=== PATIENT | female | born 1945 | race Caucasian/White ===

== ENCOUNTER 2016-06-11 22:32 | Observation (INO) | payer MEDICAID, MEDICARE, OTHER ==
[~2016-06-11] VITALS: Ht 167.6 cm; Wt 78.0 kg
[2016-06-11 20:00] VITALS: PULSE 102
[2016-06-11 22:34] VITALS: BP 132/78; PULSE 100; RESP 24; TEMP 97.4; O2SAT 94
--- NOTE | 2016-06-11 23:16 | PD ---
HPI Chief Complaint: Respiratory Symptoms Time Seen by Provider: 22:51 Travel History International Travel<30 days: No Contact w/Intl Traveler<30days: No Traveled to known affect area: No History of Present Illness HPI The patient is a 70 year old female who presents to the [facility] emergency department with a history of shortness of breath she reports began yesterday morning. She reports it has been associated with a dry/wheezing type of cough. She denies having any increased lower extremity edema. She reports that she does have chronic edema related to cirrhosis of her liver. She reports that she is on 2 diuretics related to this. The patient is visiting from [place]. She reports that she became concerned about the shortness of breath being related to a possible pleural effusion as last year she had a pleural effusion on the right side drained twice. The patient denies having any chest pain or chest pressure. She reports that she does have a history of myocardial infarction approximately 10 years ago. She reports that approximately 10 years ago she also had 2 stents placed. She denies any history of COPD or congestive heart failure. The patient reports having nausea without any vomiting. The patient denies any recent fevers, neck pain, abdominal pain, diarrhea, urinary symptoms, or neurologic symptoms. The patient reports that she last moved her bowels earlier today. [facility] Past Medical History Narrative Medical The patient's past medical history is significant for coronary artery disease status post myocardial infarction approximately 10 years ago, history of 2 prior cardiac stents being placed, hyperlipidemia, vitamin D deficiency, hypertension, fibromyalgia, cirrhosis of the liver related to hepatic steatosis , history of hypothyroid disorder, history of acid reflux, history of ascites, history of pleural effusion, history of being prediabetic. ?: Not Past Surgical History Narrative Surgical The patient's past surgical history is significant for coronary artery catheterization with stent placement 2, pleural effusion drainage 2 on the right side. Social History Alcohol Use: No Tobacco Use: No Substance Use: No Allergies-Medications (Allergen,Severity, Reaction): Coded Allergies: No Known Allergies (Unverified , 06/11/16) Reported Meds & Prescriptions Reported Meds & Active Scripts Active Reported Synthroid (Levothyroxine Sodium) 125 Mcg Tab 125 Mcg PO DAILY Lasix (Furosemide) 40 Mg Tab 40 Mg PO DAILY Lipitor (Atorvastatin Calcium) 20 Mg Tab 20 Mg PO HS Losartan (Losartan Potassium) 50 Mg Tab 50 Mg PO DAILY Zinc 100 Mg Tab 220 Mg PO DAILY Metformin (Metformin HCl) 500 Mg Tab 500 Mg PO DAILY With a meal Zoloft (Sertraline HCl) 100 Mg Tab 100 Mg PO DAILY Savella (Milnacipran) 100 Mg Tab 100 Mg PO DAILY Vitamin A 10,000 Unit Cap 10,000 Units PO DAILY Omeprazole 20 Mg Tab 20 Mg PO DAILY Review of Systems Except as stated in HPI: all other systems reviewed are Neg General / Constitutional: No: Fever Eyes: No: Visual changes HENT: No: Headaches Cardiovascular: Positive: Dyspnea on exertion, No: Chest Pain or Discomfort Respiratory: Positive: Cough, Shortness of Breath, Wheezing Gastrointestinal: Positive: Nausea, No: Vomiting, Diarrhea, Abdominal Pain, Changes in Bowel Habits, Indigestion, Loss of Appetite Genitourinary: No: Dysuria Musculoskeletal: No: Pain Skin: No Rash Neurologic: No: Weakness Psychiatric: No: Depression Endocrine: No: Polydipsia Hematologic/Lymphatic: No: Easy Bruising Physical Exam Narrative General: The patient is a well-developed well-nourished female in no acute distress. Head and Neck exam: Head is normocephalic atraumatic. Eyes: EOMI, pupils are equal round and reactive to light. Nose: Midline septum with pink mucous membranes Mouth: Dentition unremarkable. Moist mucus membranes. Posterior oropharynx is not erythematous. No tonsillar hypertrophy. Uvula midline. Airway patent. Neck: No palpable lymphadenopathy. No nuchal rigidity. No thyromegaly. Cardiovascular: Sinus tachycardia in the low 100 without murmurs, gallops, or rubs. No pulse deficit to the extremities and simultaneous auscultation and palpation of her radial artery. Lungs: Decreased breath sounds are noted in the right lung base, no wheezes, rhonchi, or crackles are audible. The patient has an occasional dry sounding cough on exam. Abdomen: Soft, without tenderness to palpation in all 4 quadrants of the abdomen. No guarding, rebound, or rigidity. Normal bowel sounds are audible. Extremities: No clubbing or cyanosis. The patient has trace pedal edema bilateral lower extremities. 2+ pulses in all 4 extremities. No calf tenderness on palpation. Back: No spinous process tenderness to palpation. No costovertebral angle tenderness to palpation. Neurologic Exam: Grossly nonfocal. Skin Exam: No rash noted. Intact skin that is warm and dry. Data Data Last Documented VS Vital Signs Date Time Temp Pulse Resp B/P Pulse Ox O2 Delivery O2 Flow Rate FiO2 06/12/16 00:01 20 06/11/16 23:59 96 21 06/11/16 23:59 Room Air 06/11/16 22:34 97.4 100 132/78 Orders Complete Blood Count With Diff (06/11/16 22:53) Comprehensive Metabolic Panel (06/11/16 22:53) B-Type Natriuretic Peptide (06/11/16 22:53) D-Dimer (06/11/16 22:53) Act Partial Throm Time (Ptt) (06/11/16 22:53) Prothrombin Time / Inr (Pt) (06/11/16 22:53) Magnesium (Mg) (06/11/16 22:53) Ckmb (Isoenzyme) Profile (06/11/16 22:53) Troponin I (06/11/16 22:53) Urinalysis - C+S If Indicated (06/11/16 22:53) Iv Access Insert/Monitor (06/11/16 22:53) Electrocardiogram (06/11/16 22:53) Ecg Monitoring (06/11/16 22:53) Oximetry (06/11/16 22:53) Oxygen Administration (06/11/16 22:53) Chest, Single Ap (06/11/16 22:53) Urine Culture (06/11/16 23:30) CKMB (06/11/16 23:30) CKMB% (06/11/16 23:30) Ct Pulmonary Angiogram (06/12/16 00:25) Admit Order (Ed Use Only) (06/12/16 00:40) Labs Laboratory Tests Test 06/11/16 23:30 Prothrombin Time 13.1 SEC Prothromb Time International 1.2 RATIO Ratio Activated Partial 26.6 SEC Thromboplast Time D-Dimer Quantitative (PE/DVT) 2.00 MG/L FEU White Blood Count 3.3 TH/MM3 Red Blood Count 4.45 MIL/MM3 Hemoglobin 10.7 GM/DL Hematocrit 32.4 % Mean Corpuscular Volume 72.8 FL Mean Corpuscular Hemoglobin 24.0 PG Mean Corpuscular Hemoglobin 33.0 % Concent Red Cell Distribution Width 19.8 % Platelet Count 69 TH/MM3 Mean Platelet Volume 8.7 FL Neutrophils (%) (Auto) 66.4 % Lymphocytes (%) (Auto) 22.4 % Monocytes (%) (Auto) 9.1 % Eosinophils (%) (Auto) 1.6 % Basophils (%) (Auto) 0.5 % Neutrophils # (Auto) 2.2 TH/MM3 Lymphocytes # (Auto) 0.7 TH/MM3 Monocytes # (Auto) 0.3 TH/MM3 Eosinophils # (Auto) 0.1 TH/MM3 Basophils # (Auto) 0.0 TH/MM3 CBC Comment AUTO DIFF Differential Comment AUTO DIFF CONFIRMED Platelet Estimate LOW Platelet Morphology Comment NORMAL Ovalocytes 1+ Urine Color YELLOW Urine Turbidity HAZY Urine pH 5.5 Urine Specific [place] 1.017 Urine Protein TRACE mg/dL Urine Glucose (UA) NEG mg/dL Urine Ketones NEG mg/dL Urine Occult Blood TRACE Urine Nitrite NEG Urine Bilirubin NEG Urine Urobilinogen LESS THAN 2.0 MG/DL Urine Leukocyte Esterase LARGE Urine RBC 2 /hpf Urine WBC 32 /hpf Urine Squamous Epithelial 11 /hpf Cells Urine Transitional Epithelial 1 /hpf Cells Urine Bacteria OCC /hpf Urine Hyaline Casts 1 /lpf Urine Mucus FEW /lpf Microscopic Urinalysis Comment CULTURE INDICATED Sodium Level 142 MEQ/L Potassium Level 3.1 MEQ/L Chloride Level 102 MEQ/L Carbon Dioxide Level 27.1 MEQ/L Anion Gap 13 MEQ/L Blood Urea Nitrogen 13 MG/DL Creatinine 1.16 MG/DL Estimat Glomerular Filtration 46 ML/MIN Rate Random Glucose 93 MG/DL Calcium Level 8.8 MG/DL Magnesium Level 1.7 MG/DL Total Bilirubin 1.4 MG/DL Aspartate Amino Transf 46 U/L (AST/SGOT) Alanine Aminotransferase 31 U/L (ALT/SGPT) Alkaline Phosphatase 101 U/L Total Creatine Kinase 429 U/L Creatine Kinase MB 2.5 NG/ML Creatine Kinase MB % 0.6 % Troponin I LESS THAN 0.02 NG/ML B-Type Natriuretic Peptide 92 PG/ML Total Protein 7.7 GM/DL Albumin 3.9 GM/DL [facility] Medical Decision Making Medical Screen Exam Complete: Yes Emergency Medical Condition: Yes Medical Record Reviewed: Yes Interpretation(s) Last Impressions CT Angiography 06/12/16 0025 Signed Impressions: Service Date/Time: Sunday, June 12, 2016 01:20 - CONCLUSION: 1. No evidence of pulmonary embolus. 2. Large right pleural effusion and right lower lung atelectasis. 3. Findings indicating cirrhosis. 4. Findings indicating portal venous hypertension with splenomegaly and prominent distal esophageal varices. Matheus Silva MD Thoracentesis Ultrasound 06/12/16 0000 Signed Impressions: Service Date/Time: Sunday, June 12, 2016 08:49 - CONCLUSION: Uncomplicated ultrasound guided thoracentesis. Peter Castillo MD Chest X-Ray 06/12/16 0000 Signed Impressions: Service Date/Time: Sunday, June 12, 2016 08:42 - CONCLUSION: No acute disease. Jhonatan Rashid MD Chest X-Ray 06/11/16 2253 Signed Impressions: Service Date/Time: Saturday, June 11, 2016 23:25 - CONCLUSION: Large area of right basilar opacity indicating either large pleural effusion or elevated hemidiaphragm. Superimposed right lower lung consolidation versus atelectasis. Matheus Silva MD Differential Diagnosis Recurrent pleural effusion related to ascites, versus related to congestive heart failure, versus related to renal failure, versus pneumonia Narrative Course During the course of the patients emergency department visit, the patients history, examination, and differential diagnosis were reviewed with the patient. The patient had IV access obtained and blood work sent for analysis. The patient was placed on a court monitor with oximetry and blood pressure monitoring. An EKG was done on arrival. The patient had an EKG done that shows a sinus rhythm with occasional supraventricular premature complexes. Marked left axis deviation is noted, nonspecific ST-T wave abnormalities are noted. T waves are inverted in V1, V2, V3, no acute ST segment elevation is noted. The patients laboratory studies were reviewed and remarkable for a d-dimer that is noted to be elevated. CTA to rule out PE has been ordered. CBC is remarkable for a white count of 3.3, hemoglobin 10.7, platelets 69 with 9.1 monocytes. This pattern is suggestive of her history of cirrhosis, CMP is remarkable for potassium 3.1, creatinine 1.16, AST 46, total bilirubin 1.4, CPK 429, troponin I less than 0.02, BNP is 92. PT 13.1, INR 1.2, PTT 26.6, d-dimer elevated at 2.0, urinalysis shows trace occult blood, 2 rbc's, 32 wbc's, occasional bacteria Radiology studies were reviewed and remarkable for a chest x-ray that shows a large area of right basilar opacity indicating either large pleural effusion or elevated hemidiaphragm. Superimposed right lower lung consolidation versus atelectasis. CTA to rule out PE was negative for pulmonary embolism, large right pleural effusion is again noted. The patient will be admitted to the hospital for evaluation and treatment of recurrent large right pleural effusion associated with shortness of breath. The patients results were discussed with the patient, including the plan of care. I explained that further testing and/ or monitoring is indicated based on the patients history, examination, and/ or laboratory findings. Therefore, I recommended admission for additional evaluation. The patient expressed understanding and was agreeable with this plan. The patient was admitted to the hospital in stable condition and [facility] Physician Communication Physician Communication The patient's case was discussed with Dr. Mccoy who did agree to admit the patient for further evaluation and treatment at this time. Diagnosis Primary Impression: Recurrent right pleural effusion Additional Impression: Shortness of breath Admitting Information Admitting Physician Requests: Observation Sangeetha Harding MD Jun 11, 2016 23:15
[2016-06-11 23:41] LABS: AUTOMATED NEUTROPHIL # 2.2 TH/MM3 (1.8-7.7); BASOPHIL % 0.5 % (0.0-2.0); EOSINOPHIL # 0.1 TH/MM3 (0-0.4); EOSINOPHIL % 1.6 % (0.0-4.0); HEMATOCRIT 32.4 % (35.0-46.0); LYMPH % 22.4 % (9.0-44.0); LYMPHOCYTE # 0.7 TH/MM3 (1.0-4.8); MEAN CELL VOLUME 72.8 FL (80.0-100.0); MONO % 9.1 % (0.0-8.0); NEUT % 66.4 % (16.0-70.0); PLATELET COUNT 69 TH/MM3 (150-450); RED BLOOD COUNT 4.45 MIL/MM3 (4.00-5.30); RED CELL DISTRIBUTION WIDTH 19.8 % (11.6-17.2); WHITE BLOOD COUNT 3.3 TH/MM3 (4.0-11.0)
[2016-06-11 23:44] LABS: BACTERIA, URINE OCC /hpf; BLOOD, URINE TRACE (NEG); GLUCOSE,URINE NEG (NEG); HYALINE CAST, URINE 1 /lpf (RARE); KETONE, URINE NEG (NEG); MUCUS URINE FEW /lpf (OCC); NITRITE,URINE NEG (NEG); PH, URINE 5.5 (5.0-8.5); SQUAMOUS EPITHELIAL CELL URINE 11 /hpf (0-5); TRANSITIONAL EPI CELLS, URINE 1 /hpf; URINE COLOR YELLOW (YELLW/STRAW)
[2016-06-11 23:45] LABS: HEMO FLAGS AUTO DIFF
[2016-06-11 23:47] LABS: COMMENT (UR) CULTURE INDICATED; CULTURE IF INDICATED CULTURE INDICATED
[2016-06-11 23:53] LABS: APTT (PATIENT) 26.6 SEC (24.3-30.1); INTERNATIONAL NORMALIZED RATIO 1.2 RATIO; PROTHROMBIN TIME - PATIENT 13.1 SEC (9.8-11.6)
--- NOTE | 2016-06-11 23:57 | RADRPT ---
EXAM DATE/TIME: 06/11/2016 23:25 [facility] COMPARISON: No previous studies available for comparison. INDICATIONS : Cough and shortness of breath. MEDICAL HISTORY : None. SURGICAL HISTORY : Right side pleural effusion drainage. ENCOUNTER: Initial ACUITY: 1 day PAIN SCORE: 0/10 LOCATION: Bilateral chest FINDINGS: Single AP view of the chest. Confluent opacity of the right lung base indicating either large pleural effusion or elevation of the right hemidiaphragm with superimposed consolidation/atelectasis. The le ft lung is clear. Mild cardiac silhouette enlargement. No evidence of pneumothorax. CONCLUSION: Large area of right basilar opacity indicating either large pleural effusion or elevated hemidiaphrag m. Superimposed right lower lung consolidation versus atelectasis. Matheus Silva MD on June 11, 2016 at 23:53 Board Certified Radiologist. This report was verified electronically.
[2016-06-11 23:59] VITALS: RESP 20; O2SAT 96
[2016-06-12] VITALS (11 sets, daily range): BP systolic 128–162; BP diastolic 71–89; PULSE 84–102; RESP 18–20; TEMP 97.8–98.5; O2SAT 93–97
[2016-06-12] MEDS ORDERED: ZOLO100T PO (00:09)
[2016-06-12] MEDS ORDERED: OMEP20TA PO (00:09)
[2016-06-12] MEDS ORDERED: [UNRECOGNIZED DRUG - CODE] PO (00:09)
[2016-06-12] MEDS ORDERED: MILN100 PO (00:09)
[2016-06-12 00:11] LABS: ALT (GPT) 31 U/L (10-53); ANION GAP 13 MEQ/L (5-15); AST (GOT) 46 U/L (15-37); BICARBONATE 27.1 MEQ/L (21.0-32.0); BLOOD UREA NITROGEN 13 MG/DL (7-18); CHLORIDE 102 MEQ/L (98-107); GLOMERULAR FILTRATION RATE 46 ML/MIN (>89); MAGNESIUM 1.7 MG/DL (1.5-2.5); POTASSIUM 3.1 MEQ/L (3.5-5.1); SODIUM (NA) 142 MEQ/L (136-145)
[2016-06-12] MEDS ORDERED: LOSA50TA PO (00:12)
[2016-06-12] MEDS ORDERED: METF500T PO (00:12)
[2016-06-12] MEDS ORDERED: FURO1TAB60 PO (00:12)
[2016-06-12] MEDS ORDERED: LEVO.125 PO (00:12)
[2016-06-12] MEDS ORDERED: LIPI20TA PO (00:12)
[2016-06-12] MEDS ORDERED: ZINC100T2 PO (00:12)
[2016-06-12 00:15] LABS: ALKALINE PHOSPHATASE 101 U/L (45-117); CREATINE KINASE 429 U/L (26-192); TOTAL BILIRUBIN ADULT 1.4 MG/DL (0.2-1.0)
[2016-06-12 00:29] LABS: CKMB 2.5 NG/ML (0.5-3.6)
[2016-06-12 00:58] LABS: OVALOCYTES 1+ (NORMAL); PLATELET ESTIMATE SMEAR LOW (NORMAL); PLATELET MORPHOLOGY NORMAL (NORMAL); SCAN/DIFF AUTO DIFF CONFIRMED
[2016-06-12] MEDS ORDERED: POTASSIUM CHLORIDE 20 MEQ CONTROLLED RELEASE TAB PO ONE (01:15)
[2016-06-12] MEDS ORDERED: SODIUM CHLORIDE 0.9% FLUSH 5 ML FLUSH FLUSH PRN (01:15)
[2016-06-12] MEDS ORDERED: ONDANSETRON HCL 4 MG/2 ML VIAL IVP PRN (01:15)
[2016-06-12] MEDS ORDERED: ACETAMINOPHEN 325 MG TAB PO PRN (01:15)
[2016-06-12] MEDS ORDERED: NALOXONE HCL 0.4 MG/ML AMP IV PRN (01:15)
[2016-06-12] MEDS ORDERED: IOHEXOL 350 MG/ML 10 ML VIAL (for RAD DIAG) IV ONE (01:37)
--- NOTE | 2016-06-12 02:09 | RADRPT ---
EXAM DATE/TIME: 06/12/2016 01:20 [facility] COMPARISON: CHEST SINGLE AP, June 11, 2016, 23:25. INDICATIONS : Shortness of breath and chest pain. IV CONTRAST: 70 cc Omnipaque 350 (iohexol) IV RADIATION DOSE: 9.08 CTDIvol (mGy) MEDICAL HISTORY : Cardiovascular disease. Hypertension. Diabetes mellitus type 2. SURGICAL HISTORY : None. ENCOUNTER: Initial ACUITY: 2 days PAIN SCALE: 4/10 LOCATION: Right chest TECHNIQUE: Volumetric scanning of the chest was performed using a pulmonary embolism protocol MIP images were re constructed. Using automated exposure control and adjustment of the mA and/or kV according to patien t size, radiation dose was kept as low as reasonably achievable to obtain optimal diagnostic quality images. FINDINGS: PULMONARY ARTERIES: No filling defects to suggest pulmonary embolus. LUNGS: Prominent right lower lobe and right middle lobe atelectasis. PLEURAE: Large right pleural effusion. MEDIASTINUM: And coronary artery calcification. Aorta normal diameter. No enlarged lymph nodes. Prominent distal e sophageal varices. MUSCULOSKELETAL: Within normal limits for patient age. MISCELLANEOUS: Diffusely nodular contour of the liver and hypertrophic left lobe of the liver indicating cirrhosis. Multiple calcified granulomas in the liver. Marked splenomegaly. Prominent varices adjacent to the me dial wall of the stomach. Small amount of upper abdominal ascites. CONCLUSION: 1. No evidence of pulmonary embolus. 2. Large right pleural effusion and right lower lung atelectasis. 3. Findings indicating cirrhosis. 4. Findings indicating portal venous hypertension with splenomegaly and prominent distal esophageal v arices. Matheus Silva MD on June 12, 2016 at 2:02 Board Certified Radiologist. This report was verified electronically.
[2016-06-12 05:14] LABS: AUTOMATED NEUTROPHIL # 2.1 TH/MM3 (1.8-7.7); BASOPHIL % 0.7 % (0.0-2.0); EOSINOPHIL # 0.1 TH/MM3 (0-0.4); HEMATOCRIT 31.8 % (35.0-46.0); LYMPH % 28.5 % (9.0-44.0); MEAN CELL VOLUME 72.7 FL (80.0-100.0); MONO % 11.1 % (0.0-8.0); NEUT % 57.7 % (16.0-70.0); PLATELET COUNT 77 TH/MM3 (150-450); RED BLOOD COUNT 4.37 MIL/MM3 (4.00-5.30); RED CELL DISTRIBUTION WIDTH 19.5 % (11.6-17.2); WHITE BLOOD COUNT 3.6 TH/MM3 (4.0-11.0)
[2016-06-12 05:20] LABS: BICARBONATE 27.8 MEQ/L (21.0-32.0); POTASSIUM 3.5 MEQ/L (3.5-5.1)
[2016-06-12 05:30] LABS: HEMO FLAGS AUTO DIFF
[2016-06-12 05:36] LABS: CKMB 2.8 NG/ML (0.5-3.6)
--- NOTE | 2016-06-12 05:41 | HHI.HP ---
[facility] Service [facility] Primary Care Physician Non-Staff Admission Diagnosis Shortness of breath, large right pleural effusion Diagnoses: Chief Complaint: shortness of breath Travel History International Travel<30 Days: No Contact w/Intl Traveler <30 Da: No Traveled to Known Affected Are: No History of Present Illness 70 y/o female with a history of pleural effusions, htn, hyperlipidemia, cirrhosis, hypothyroidism, gerd and depression presented to the ED with complaints of shortness of breath and a dry non productive cough since Saturday morning. Patient states she woke up Saturday morning and began to cough and feel short of breath on rest and exertion. She denies chest pain, fever, chills, nausea. Review of Systems Constitutional: DENIES: Fever, Chills Respiratory: COMPLAINS OF: Cough, Sputum production, Shortness of breath Cardiovascular: DENIES: Chest pain, Dyspnea on Exertion, Lower Extremity Edema Gastrointestinal: DENIES: Abdominal pain, Diarrhea, Nausea, Vomiting Genitourinary: DENIES: Hematuria, Dysuria Musculoskeletal: DENIES: Back pain, Neck pain Hematologic/lymphatic: DENIES: Lymphadenopathy Immunologic/allergic: DENIES: Urticaria Neurologic: DENIES: Headache Past Family Social History Past Medical History DM Liver disease Fibromyalgia Hepatosplenomegaly Hyperlipidemia GERD pleural effusions HTN Hypothyroidism Depression Past Surgical History Partial thyroidectomy Reported Medications Reported Meds & Active Scripts Active Reported Synthroid (Levothyroxine Sodium) 125 Mcg Tab 125 Mcg PO DAILY Lasix (Furosemide) 40 Mg Tab 40 Mg PO DAILY Lipitor (Atorvastatin Calcium) 20 Mg Tab 20 Mg PO HS Losartan (Losartan Potassium) 50 Mg Tab 50 Mg PO DAILY Zinc 100 Mg Tab 220 Mg PO DAILY Metformin (Metformin HCl) 500 Mg Tab 500 Mg PO DAILY With a meal Zoloft (Sertraline HCl) 100 Mg Tab 100 Mg PO DAILY Savella (Milnacipran) 100 Mg Tab 100 Mg PO DAILY Vitamin A 10,000 Unit Cap 10,000 Units PO DAILY Omeprazole 20 Mg Tab 20 Mg PO DAILY Allergies: Coded Allergies: No Known Allergies (Unverified , 06/11/16) Active Ordered Medications Current Medications Medications (Trade) Dose Ordered Sig/Gretchen Route Start Time Stop Time Status Last Admin (NS Flush) 2 ml UNSCH PRN FLUSH 06/12/16 01:15 (NS Flush) 2 ml BID FLUSH 06/12/16 09:00 (Tylenol) 650 mg Q4H PRN PO 06/12/16 01:15 (Zofran Inj) 4 mg Q6H PRN IVP 06/12/16 01:15 (Heparin Inj) 5,000 units Q12HR SQ 06/12/16 09:00 (Narcan Inj) 0.4 mg UNSCH PRN IV 06/12/16 01:15 Family History Mom: Colon cancer Dad: AAA Sister: Breast cancer Brother: throat cancer Social History Tobacco use: Denies Alcohol use: Denies Illicit drug use: Denies Physical Exam Vital Signs Vital Signs Date Time Temp Pulse Resp B/P Pulse Ox O2 Delivery O2 Flow Rate FiO2 06/12/16 03:00 90 06/12/16 02:50 98.0 84 18 158/81 97 06/12/16 00:01 20 06/11/16 23:59 20 06/11/16 23:59 96 21 06/11/16 23:59 96 Room Air 06/11/16 22:34 97.4 100 24 132/78 94 Room Air Physical Exam GENERAL: This is a well-nourished, well-developed patient, in no apparent distress. SKIN: No rashes, ecchymoses or lesions. Cool and dry. HEAD: Atraumatic. Normocephalic. EYES: Pupils equal round and reactive. Extraocular motions intact. ENT: Nose without bleeding, purulent drainage or septal hematoma. Airway patent. NECK: Trachea midline. No JVD or lymphadenopathy. CARDIOVASCULAR: Regular rate and rhythm without murmurs, gallops, or rubs. RESPIRATORY: Diminish Breath sounds on RLL. No wheezes, rales, or rhonchi. GASTROINTESTINAL: Abdomen soft, non-tender, nondistended. No guarding. MUSCULOSKELETAL: Extremities without clubbing, cyanosis, or edema. No joint tenderness, effusion, or edema noted. No calf tenderness. NEUROLOGICAL: Awake and alert. Motor and sensory grossly within normal limits. Normal speech. Laboratory Laboratory Tests Test 06/11/16 06/12/16 23:30 04:42 Prothrombin Time 13.1 Prothromb Time International 1.2 Ratio Activated Partial 26.6 Thromboplast Time D-Dimer Quantitative (PE/DVT) 2.00 White Blood Count 3.3 3.6 Red Blood Count 4.45 4.37 Hemoglobin 10.7 10.5 Hematocrit 32.4 31.8 Mean Corpuscular Volume 72.8 72.7 Mean Corpuscular Hemoglobin 24.0 24.0 Mean Corpuscular Hemoglobin 33.0 33.0 Concent Red Cell Distribution Width 19.8 19.5 Platelet Count 69 77 Mean Platelet Volume 8.7 8.8 Neutrophils (%) (Auto) 66.4 57.7 Lymphocytes (%) (Auto) 22.4 28.5 Monocytes (%) (Auto) 9.1 11.1 Eosinophils (%) (Auto) 1.6 2.0 Basophils (%) (Auto) 0.5 0.7 Neutrophils # (Auto) 2.2 2.1 Lymphocytes # (Auto) 0.7 1.0 Monocytes # (Auto) 0.3 0.4 Eosinophils # (Auto) 0.1 0.1 Basophils # (Auto) 0.0 0.0 CBC Comment AUTO DIFF AUTO DIFF Differential Comment AUTO DIFF CONFIRMED Platelet Estimate LOW Platelet Morphology Comment NORMAL Ovalocytes 1+ Urine Color YELLOW Urine Turbidity HAZY Urine pH 5.5 Urine Specific [place] 1.017 Urine Protein TRACE Urine Glucose (UA) NEG Urine Ketones NEG Urine Occult Blood TRACE Urine Nitrite NEG Urine Bilirubin NEG Urine Urobilinogen LESS THAN 2.0 Urine Leukocyte Esterase LARGE Urine RBC 2 Urine WBC 32 Urine Squamous Epithelial 11 Cells Urine Transitional Epithelial 1 Cells Urine Bacteria OCC Urine Hyaline Casts 1 Urine Mucus FEW Microscopic Urinalysis Comment CULTURE INDICATED Sodium Level 142 141 Potassium Level 3.1 3.5 Chloride Level 102 104 Carbon Dioxide Level 27.1 27.8 Anion Gap 13 9 Blood Urea Nitrogen 13 13 Creatinine 1.16 1.06 Estimat Glomerular Filtration 46 51 Rate Random Glucose 93 100 Calcium Level 8.8 8.9 Magnesium Level 1.7 Total Bilirubin 1.4 Aspartate Amino Transf 46 (AST/SGOT) Alanine Aminotransferase 31 (ALT/SGPT) Alkaline Phosphatase 101 Total Creatine Kinase 429 410 Creatine Kinase MB 2.5 Creatine Kinase MB % 0.6 Troponin I LESS THAN 0.02 0.02 B-Type Natriuretic Peptide 92 Total Protein 7.7 Albumin 3.9 Date/Time Procedure Status Source Growth 06/11/16 23:30 Urine Culture Received Urine Clean Catch Pending Result Diagram: 06/12/16 0442 06/12/16 0442 Assessment and Plan Problem List: (1) Recurrent right pleural effusion ICD Code: J90 Status: Acute (2) Thrombocytopenia ICD Code: D69.6 Status: Acute (3) Hypothyroidism ICD Code: E03.9 Status: Acute (4) HTN (hypertension) ICD Code: I10 Status: Acute Assessment and Plan 70 y/o female with a history of pleural effusions, htn, cirrhosis, hyperlipidemia, hypothyroidism, gerd and depression presented with: Right pleural effusion, recurrent Imaging: CTA shows a large right pleural effusion and right lower lung atelectasis. NO PE -Consult IR for possible drainage -Cont home medications Lasix Thrombocytopenia, possibly related to chronic liver disease Labs: platelets 69, and 77 -Trend CBC -May need hematology consult HTN, chronic -Resume home medications losartan -Monitor vitals Hypothyroidism, chronic -Restart home medications synthroid DVT prophylaxis: SCDs Written by Chantal ROJO, acting as scribe for Dr. Mccoy on 06/12/16 at 0530. Discussed Condition With Patient and RN Attending Statement All or portions of this note were transcribed by scribe DARREL Craft. I, Dr. Sam Mccoy personally performed the history, physical exam, and medical decision making; and confirmed the accuracy of the information in the transcribed note. Authenticated by Dr. Sam Mccoy on 06/12/16 at 06:19. Chantal Lindsay Jun 12, 2016 05:41 Sam Mccoy MD Jun 12, 2016 06:19
[2016-06-12] MEDS ORDERED: cloNIDine HCL 0.1 MG TAB PO PRN (06:15)
[2016-06-12] MEDS ORDERED: DEXTROSE 50% IN WATER 50 ML VIAL(D50) IV PUSH PRN (06:15)
[2016-06-12] MEDS ORDERED: ENALAPRILAT 1.25 MG/ML VIAL IV PRN (06:15)
[2016-06-12] MEDS ORDERED: GLUCAGON 1 MG/ML VIAL OTHER PRN (06:15)
[2016-06-12] MEDS: LEVOTHYROXINE SODIUM 125 MCG TAB PO SCH (06:26)
[2016-06-12] MEDS: INSULIN ASPART SUPPLEMENTAL SCALE SQ SCH ×4 (06:29→22:46)
[2016-06-12 07:16] LABS: ACANTHOCYTES OCC (NORMAL); OVALOCYTES 1+ (NORMAL); PLATELET ESTIMATE SMEAR LOW (NORMAL); PLATELET MORPHOLOGY NORMAL (NORMAL); SCAN/DIFF AUTO DIFF CONFIRMED
[2016-06-12] MEDS ORDERED: FUROSEMIDE 40 MG TAB PO SCH ×2 (09:00→18:00)
[2016-06-12] MEDS ORDERED: VITAMIN A 10000 UNIT PO SCH (09:00)
[2016-06-12] MEDS ORDERED: HEPARIN SODIUM - SQ 10,000 UNITS/ML VIAL SQ SCH (09:00)
[2016-06-12] MEDS ORDERED: cefTRIAXone INJ 1,000 MG in SODIUM CHLORIDE 0.9% INJ 100 ML IV SCH (09:00)
--- NOTE | 2016-06-12 09:47 | RADRPT ---
EXAM DATE/TIME: 06/12/2016 08:42 [facility] COMPARISON: No previous studies available for comparison. INDICATIONS : S/p right side thoracentesis MEDICAL HISTORY : Cardiovascular disease. Hypertension Diabetes mellitus type II. SURGICAL HISTORY : None. ENCOUNTER: Initial ACUITY: 1 day PAIN SCORE: 0/10 LOCATION: Bilateral chest FINDINGS: A single frontal expiratory view of the chest was performed. The lungs are symmetrically aerated and clear. No evidence of pneumothorax. Mediastinal structures are in the midline. The cardio-mediastinal contours and bronchopulmonary markings are unremarkable for an expiratory exam . Osseous structures are intact. CONCLUSION: No acute disease. Jhonatan Rashid MD on June 12, 2016 at 9:44 Board Certified Radiologist. This report was verified electronically.
[2016-06-12 11:00] LABS: TOTAL PROTEIN,PLEURAL FLUID 1.1 GM/DL
[2016-06-12 11:25] LABS: PLEURAL FLUID LYMPHS 39 %
[2016-06-12] MEDS: ZINC SULFATE 220 MG CAP PO SCH (11:27)
[2016-06-12] MEDS: LOSARTAN 50 MG TAB PO SCH (11:27)
[2016-06-12] MEDS: PANTOPRAZOLE SOD 20 MG DELAYED RELEASE TAB PO SCH (11:27)
[2016-06-12] MEDS: MILNACIPRAN 100 MG TAB PO SCH (11:27)
[2016-06-12] MEDS: SERTRALINE HCL 100 MG TAB PO SCH (11:28)
[2016-06-12] MEDS: SODIUM CHLORIDE 0.9% FLUSH 5 ML FLUSH FLUSH SCH ×2 (11:29→22:44)
[2016-06-12 12:21] LABS: CKMB 2.4 NG/ML (0.5-3.6)
--- NOTE | 2016-06-12 14:48 | EKG ---
Date Performed: 06/11/2016 Time Performed: 23:36:22 PTAGE: 70 years EKG: Sinus rhythm WITH OCCASIONAL SUPRAVENTRICULAR PREMATURE COMPLEXES MARKED LEFT AXIS DEVIATION NONSPECIFIC ST & [address] ABNORMALITY ABNORMAL ECG NO PREVIOUS TRACING DOCTOR: Steven Andrade Interpretating Date/Time 06/12/2016 14:40:55
--- NOTE | 2016-06-12 15:14 | RADRPT ---
EXAM DATE/TIME: 06/12/2016 08:49 [place] COMPARISON: No previous studies available for comparison. INDICATIONS : Right pleural effusion. MEDICAL HISTORY : Myocardial infarction. Hypercholesterolemia. Cirrhosis. Thyroid disease. CAD. Dyspnea. HTN. Dyspnea. Fibromyalgia. Diabetes. Depression. SURGICAL HISTORY : Partial thyroidectomy. ENCOUNTER: Initial ACUITY: 1 week PAIN SCORE: 04/10 LOCATION: Right chest FLUID: Total volume of 2000 cc of cloudy, yellow fluid was removed. Fluid was sent to lab for ordered studies. TECHNIQUE: 1. Ultrasound guidance for thoracentesis. 2. Thoracentesis. The risks, benefits, and alternatives to ultrasound guided thoracentesis were explained to the patien t in lay simple terms, including the risk of bleeding and infection. Written and verbal informed con sent was obtained. Appropriate area for thoracentesis was marked under ultrasound guidance with the patient in the uprig ht position. Overlying skin was prepped and draped in the usual sterile fashion and with local anest hetic, a dermatotomy was made with an 11 blade scalpel. A 6 Yoruba thoracentesis catheter was placed in the pleural space and fluid was removed. Catheter was then removed and a sterile dressing applie d. There were no immediate complications. The patient tolerated the procedure well and the left the ultrasound suite in stable condition. Chest radiograph is to be obtained. CONCLUSION: Uncomplicated ultrasound guided thoracentesis. Peter Castillo MD on June 12, 2016 at 15:12 Board Certified Radiologist. This report was verified electronically.
--- NOTE | 2016-06-12 16:04 | HHI.PR ---
Subjective Remarks Follow-up for shortness of breath and pleural effusions. The patient had thoracentesis today. She believes this is her third or fourth thoracentesis. Visiting from [place]. She feels like her breathing is better today. She has been ambulating. She denies any fevers, chills, or dysuria. She would like to know what the final studies show for her pleural fluid. On Lasix and Aldactone at home, takes in the evening because she is a night owl. Objective Vitals Vital Signs Date Time Temp Pulse Resp B/P Pulse Ox O2 Delivery O2 Flow Rate FiO2 06/12/16 11:39 98 18 161/75 93 06/12/16 09:48 98.5 95 18 153/89 94 06/12/16 09:32 98.5 92 20 128/77 97 06/12/16 08:46 97.8 94 18 153/86 94 06/12/16 08:00 98 06/12/16 07:54 98.0 96 18 162/78 95 06/12/16 03:00 90 06/12/16 02:50 98.0 84 18 158/81 97 06/12/16 00:01 20 06/11/16 23:59 20 06/11/16 23:59 96 21 06/11/16 23:59 96 Room Air 06/11/16 22:34 97.4 100 24 132/78 94 Room Air I/O 06/11/16 06/11/16 06/11/16 06/12/16 06/12/16 06/12/16 07:00 15:00 23:00 07:00 15:00 23:00 Intake Total 30 ml Balance 30 ml Intake Oral 30 ml Result Diagram: 06/12/16 0442 06/12/16 [address] Angiography 06/12/16 0025 Signed Impressions: Service Date/Time: Sunday, June 12, 2016 01:20 - CONCLUSION: 1. No evidence of pulmonary embolus. 2. Large right pleural effusion and right lower lung atelectasis. 3. Findings indicating cirrhosis. 4. Findings indicating portal venous hypertension with splenomegaly and prominent distal esophageal varices. Matheus Silva MD Chest X-Ray 06/11/16 6232 Signed Impressions: Service Date/Time: Saturday, June 11, 2016 23:25 - CONCLUSION: Large area of right basilar opacity indicating either large pleural effusion or elevated hemidiaphragm. Superimposed right lower lung consolidation versus atelectasis. Matheus Silva MD Objective Remarks GENERAL: Well-developed well-nourished. In no acute distress. SKIN: Warm and dry. No lesions noted. HEENT: Normocephalic. Pupils equal and round. Mucous membranes pink and moist. CARDIOVASCULAR: Regular rate and rhythm. No murmur appreciated. RESPIRATORY: No accessory muscle use. Clear to auscultation. Breath sounds equal bilaterally. GASTROINTESTINAL: Abdomen soft, non-tender, nondistended. Bowel sounds x4. MUSCULOSKELETAL: No obvious deformities. No clubbing or cyanosis. No edema. NEUROLOGICAL: Awake and alert. No focal neurological deficits. Moves upper and lower extremities spontaneously. Normal speech. PSYCHIATRIC: Appropriate mood and affect; insight and judgment normal. A/P Problem List: (1) Recurrent right pleural effusion ICD Code: J90 Status: Acute (2) Thrombocytopenia ICD Code: D69.6 Status: Acute (3) Hypothyroidism ICD Code: E03.9 Status: Chronic (4) HTN (hypertension) ICD Code: I10 Status: Chronic Assessment and Plan 70 y/o female with a history of pleural effusions, htn, cirrhosis, hyperlipidemia, hypothyroidism, gerd and depression presented with: Right pleural effusion, recurrent Imaging: CTA shows a large right pleural effusion and right lower lung atelectasis. NO PE -Consulted IR, performed thoracentesis with removal of 2 L so fluid, symptoms improved -Cont home medications Lasix -Reconcile and resume home Aldactone -Cell count reviewed, appears transudative, afebrile, doubt infection -Follow-up fluid culture Anemia, leukopenia, thrombocytopenia, mild, likely related to chronic liver disease Labs: Blood counts stable overnight. -Trend CBC Abnormal UA, denies any urinary symptoms -Given IV Rocephin, hold off on further antibiotics for now with no symptoms and follow-up urine culture HTN, chronic -Continue home losartan -Monitor vitals Hypothyroidism, chronic -Continue home Synthroid DVT prophylaxis: SCDs Written by Alon Meier, acting as scribe for Dr. Hainse on 06/12/16 at 16:03. All or portions of this note were transcribed by scribe []. I, Dr. Jhonatan Haines personally performed the history, physical exam, and medical decision making; and confirmed the accuracy of the information in the transcribed note. Authenticated by Dr. Jhonatan Haines on 06/12/16 at 16:11. Discharge Planning Anticipate discharge tomorrow, follow-up cultures Problem Qualifiers (1) Hypothyroidism: Qualified Code: E03.9 - Hypothyroidism, unspecified type (2) HTN (hypertension): Qualified Code: I10 - Essential hypertension Alon Meier Jun 12, 2016 16:04 Jhonatan Haines MD Jun 12, 2016 16:11
[2016-06-12] MEDS ORDERED: ATORVASTATIN 20 MG TAB PO SCH (21:00)
[2016-06-13 03:24] VITALS: BP 150/82; PULSE 82; RESP 18; TEMP 97.8; O2SAT 97
[2016-06-13] MEDS: INSULIN ASPART SUPPLEMENTAL SCALE SQ SCH ×2 (06:43→11:00)
[2016-06-13] MEDS: LEVOTHYROXINE SODIUM 125 MCG TAB PO SCH (06:46)
[2016-06-13 07:13] VITALS: BP 148/71; PULSE 91; RESP 18; TEMP 98; O2SAT 95
[2016-06-13 08:00] VITALS: PULSE 75
[2016-06-13] MEDS: ZINC SULFATE 220 MG CAP PO SCH (08:36)
[2016-06-13] MEDS: PANTOPRAZOLE SOD 20 MG DELAYED RELEASE TAB PO SCH (08:36)
[2016-06-13] MEDS: LOSARTAN 50 MG TAB PO SCH (08:37)
[2016-06-13] MEDS: SODIUM CHLORIDE 0.9% FLUSH 5 ML FLUSH FLUSH SCH (08:37)
[2016-06-13] MEDS: SERTRALINE HCL 100 MG TAB PO SCH (08:37)
[2016-06-13] MEDS: MILNACIPRAN 100 MG TAB PO SCH (08:37)
[2016-06-13] MEDS ORDERED: NADO40TA PO (10:18)
[2016-06-13] MEDS ORDERED: SPIR100T PO (10:19)
[2016-06-13] MEDS ORDERED: XIFA550T4 PO (10:21)
--- NOTE | 2016-06-13 11:35 | HHI.PR ---
Subjective Remarks Follow-up for pleural effusions. Patient has been ambulating. She states upset stomach earlier today, but that has improved. She does have a headache at this time. It seems that her home medication list was not fully reconciled, discussed with RN. She would like to go home today. Objective Vitals Vital Signs Date Time Temp Pulse Resp B/P Pulse Ox O2 Delivery O2 Flow Rate FiO2 06/13/16 07:13 98.0 91 18 148/71 95 06/13/16 03:24 97.8 82 18 150/82 97 06/12/16 20:00 102 06/12/16 19:24 98.0 94 18 153/76 96 06/12/16 16:38 97 139/71 06/12/16 11:39 98 18 161/75 93 I/O 06/12/16 06/12/16 06/12/16 06/13/16 06/13/16 06/13/16 07:00 15:00 23:00 07:00 15:00 23:00 Intake Total 30 ml 221 ml Balance 30 ml 221 ml Intake Oral 30 ml 221 ml # Voids 2 Result Diagram: 06/12/16 0442 06/12/16 [address] Angiography 06/12/16 0025 Signed Impressions: Service Date/Time: Sunday, June 12, 2016 01:20 - CONCLUSION: 1. No evidence of pulmonary embolus. 2. Large right pleural effusion and right lower lung atelectasis. 3. Findings indicating cirrhosis. 4. Findings indicating portal venous hypertension with splenomegaly and prominent distal esophageal varices. Matheus Silva MD Thoracentesis Ultrasound 06/12/16 0000 Signed Impressions: Service Date/Time: Sunday, June 12, 2016 08:49 - CONCLUSION: Uncomplicated ultrasound guided thoracentesis. Peter Castillo MD Chest X-Ray 06/12/16 0000 Signed Impressions: Service Date/Time: Sunday, June 12, 2016 08:42 - CONCLUSION: No acute disease. Jhonatan Rashid MD Objective Remarks GENERAL: Well-developed well-nourished. In no acute distress. SKIN: Warm and dry. No lesions noted. HEENT: Normocephalic. Pupils equal and round. Mucous membranes pink and moist. CARDIOVASCULAR: Regular rate and rhythm. No murmur appreciated. RESPIRATORY: No accessory muscle use. Clear to auscultation. Breath sounds equal bilaterally. GASTROINTESTINAL: Abdomen soft, non-tender, nondistended. Bowel sounds x4. MUSCULOSKELETAL: No obvious deformities. No clubbing or cyanosis. No edema. NEUROLOGICAL: Awake and alert. No focal neurological deficits. Moves upper and lower extremities spontaneously. Normal speech. PSYCHIATRIC: Appropriate mood and affect; insight and judgment normal. A/P Problem List: (1) Recurrent right pleural effusion ICD Code: J90 Status: Acute (2) Thrombocytopenia ICD Code: D69.6 Status: Acute (3) Hypothyroidism ICD Code: E03.9 Status: Chronic (4) HTN (hypertension) ICD Code: I10 Status: Chronic Assessment and Plan 70 y/o female with a history of pleural effusions, htn, cirrhosis, hyperlipidemia, hypothyroidism, gerd and depression presented with: Right pleural effusion, recurrent Imaging: CTA shows a large right pleural effusion and right lower lung atelectasis. NO PE -Consulted IR, performed thoracentesis with removal of 2 L fluid, symptoms improved -Cont home medications Lasix -Resume home Aldactone -Cell count reviewed, appears transudative, afebrile, doubt infection -Fluid culture with no growth to date, D/W patient, follow-up with PCP for final fluid culture result Anemia, leukopenia, thrombocytopenia, mild, likely related to chronic liver disease Labs: WBC, hemoglobin, platelet counts stable Abnormal UA, denies any urinary symptoms, urine culture with mixed marilin, no further antibiotics needed. Headache, likely secondary from missed home BP meds -Resume Nadolol and Aldactone HTN, chronic -Continue home losartan -Monitor vitals Hypothyroidism, chronic -Continue home Synthroid DVT prophylaxis: SCDs Written by Alon Meier, acting as scribe for Dr. Haines on 06/13/16 at 11:35. All or portions of this note were transcribed by scribe []. I, Dr. Jhonatan Haines personally performed the history, physical exam, and medical decision making; and confirmed the accuracy of the information in the transcribed note. Authenticated by Dr. Jhonatan Haines on 06/13/16 at 17:02. Discharge Planning Discharge patient to home Condition on discharge: Improved Heart healthy Diet as tolerated Regular activity Rx written: None Follow-up with primary care physician Problem Qualifiers (1) Hypothyroidism: Qualified Code: E03.9 - Hypothyroidism, unspecified type (2) HTN (hypertension): Qualified Code: I10 - Essential hypertension Alon Meier Jun 13, 2016 11:35 Jhonatan Haines MD Jun 13, 2016 17:02
[2016-06-13] MEDS ORDERED: RIFAXIMIN 550 MG TAB PO SCH (12:00)
[2016-06-13] MEDS ORDERED: SPIRONOLACTONE 100 MG TAB PO SCH (12:00)
[2016-06-13] MEDS ORDERED: NADOLOL 40 MG TAB PO SCH (12:00)
--- NOTE | 2016-06-13 20:23 | EKG ---
Date Performed: 06/12/2016 Time Performed: 13:01:35 PTAGE: 70 years EKG: Sinus rhythm MARKED LEFT AXIS DEVIATION MODERATE T-WAVE ABNORMALITY ABNORMAL ECG PREVIOUS TRACING : 06/11/2016 23.36 Compared to prior tracing no significant change DOCTOR: Ridge Loza Interpretating Date/Time 06/13/2016 20:22:44
== END 2016-06-13 14:58 | disposition home or self-care (01) ==
LOC: NEPE 22:32 → NEDA 06-12 00:42 → NEPFCDU 06-12 02:42
PROVIDERS: ADMIT Internal Medicine; ATTEND Internal Medicine
DX: J90 Pleural effusion, not elsewhere classified (principal); K74.60 Unspecified cirrhosis of liver; D69.6 Thrombocytopenia, unspecified; E03.9 Hypothyroidism, unspecified; I10 Essential (primary) hypertension; E78.5 Hyperlipidemia, unspecified; K21.9 Gastro-esophageal reflux disease without esophagitis; E11.9 Type 2 diabetes mellitus without complications; M79.7 Fibromyalgia; F32.9 Major depressive disorder, single episode, unspecified
CPT/HCPCS: 32555; 71010; 71275; 80048; 80053; 81001; 82550; 82552; 82945; 82948; 83615; 83735; 83880; 84155; 84157; 84484; 85025; 85379; 85610; 85730; 87070; 87086; 87205; 88112; 88305; 89051; 93005; 97161; 99285; C1729; G0378; G8987; G8988; J0696; J1815; Q9967